=== PATIENT | male | born 1970 | race Caucasian/White ===

== ENCOUNTER 2019-01-11 04:33 | Emergency (ER) | payer BC ==
[~2019-01-11] VITALS: Ht 167.6 cm; Wt 90.7 kg
[~2019-01-11 04:33] MED LIST: AMLODIPINE BESYL5 MG PO; LOSARTAN-HCTZ1 EAC1 PO; PRAVASTATIN SOD10 MG PO
[2019-01-11] MEDS ORDERED: SODIUM CHLORIDE 0.9% 1000ML 1,000 ML IV STA (04:35)
[2019-01-11] MEDS ORDERED: KETOROLAC TROMETHAMINE 30 MG/ML VIAL IV STA (04:35)
[2019-01-11] MEDS ORDERED: ONDANSETRON HCL INJ 2MG/ML 2ML 2 MG/ML VIAL IV STA (04:35)
--- OUTSIDE RECORDS SUMMARY | 2019-01-11 04:36 | XMS REPORT | Summary of Care ---
Author Author JULY WEINER DDS Organization Unknown Address Unknown Phone Unavailable Care Team Providers Care Genomics Scientist Name Role Phone JULY WEINER DDS Unavailable Unavailable TONIA SANCHEZ MD, HARSH BUSTAMANTE Unavailable Unavailable July Weiner DDS Unavailable Unavailable Functional Status Name Dates Details Functional status health issues are not documented Status: Name Dates Details Cognitive status health issues are not documented Status: Problems Name Dates Details Active medical history not documented Status: Medications Name Dates Details Medications not documented Allergies and Adverse Reactions Name Dates Details No Known Drug Allergies (Allergy) Status: Active Procedures Procedure Dates Details Procedures not documented Immunization Name Dates Details Immunizations not documented Social History Name Dates Details Unknown if ever smoked Vital Signs Date Test Result Details [id number] BP Systolic 116 mm[Hg] Status: BP Diastolic 68 mm[Hg] Status: Height 66 in Status: Weight 200 lb Status: Body Mass Index Calculated 32.28 kg/m2 Status: Body Surface Area Calculated 2 m2 Status: Heart Rate 88 /min Status: Results Date Description Value Details Results not documented Plan of Care Name Dates Details Planned Observations Planned Goals not documented Interventions Provided Discussion/Summary* Impression: right mandibular bony cystic lesion associated to impacted teeth #31, 32 Currently, this is mild. * Return Visit Schedule for Outpatient Surgery Instructions Name Dates Details Instructions not documented Encounters Appointment; ANTONIO RANDALL DDS|[place] Encounter Diagnosis: Problem not documented On: 04-Oct-2018 11:15 Appointment; JULY WEINER DDS Encounter Diagnosis: Problem not documented On: 25-Nov-2018 15:00"
--- OUTSIDE RECORDS SUMMARY | 2019-01-11 04:36 | XMS REPORT | Summary of Care ---
Author Author [facility] Organization [facility] Address Unknown Phone Unavailable Encounter JACIEL Harris(GLADYS) [id number] Date(s): 12/28/18 - 12/28/18 [facility] [address] [place] [address] [phone] Discharge Disposition: Home or Self Care Attending Physician: Wallace Tran DDS, MD Referring Physician: Wallace Tran DDS, MD Vital Signs 1 2 3 Most recent to oldest [Reference Range]: 170.18 cm (12/28/18 6:28 AM) 167.64 cm (12/19/18 3:39 PM) Height 139/73 mmHg (12/28/18 12:46 PM) 136/78 mmHg (12/28/18 12:00 PM) 165/83 mmHg *HI* (12/28/18 11:45 AM) Blood Pressure [90-140/60-90 mmHg] 16 BRMIN (12/28/18 12:46 PM) 15 BRMIN (12/28/18 12:00 PM) 12 BRMIN *LOW* (12/28/18 11:45 AM) Respiratory Rate [14-20 BRMIN] 85 bpm (12/28/18 6:28 AM) 84 bpm (12/19/18 3:40 PM) Peripheral Pulse Rate [60-100 bpm] 90.909 kg (12/28/18 6:28 AM) 92 kg (12/19/18 3:39 PM) Weight 31.39 m2 (12/28/18 6:28 AM) 32.74 m2 (12/19/18 3:39 PM) Body Mass Index Problem List No data available for this section Allergies, Adverse Reactions, Alerts No Known Medication Allergies Medications acetaminophen 325 mg oral tablet 650 mg=2 tab, PO, Q6H, PRN for pain, X 2 day, # 30 tab, 0 Refill(s) Start Date: 12/28/18 Stop Date: 12/30/18 Status: Completed ANES flumazenil 0.2 mg, 2 mL, Route: IVP, Drug form: INJ, PRN, Dosing Weight 90.909, kg, PRN Jose Angel zodiazepine Reversal, Initial dose, Start date: 12/28/18 8:41:00 CDT, Duration: 30 day, Stop date: 01/27/19 8:40:00 CDT, 0 Notes: (Same as: Romazicon) Start Date: 12/28/18 Stop Date: 12/29/18 Status: Discontinued ANES hydrALAZINE 10 mg, 0.5 mL, Route: IVP, Drug form: INJ, Q20Min, Dosing Weight 90.909, kg, PRN Elevated BP, Start date: 12/28/18 8:41:00 CDT, Duration: 2 doses or times, Stop date: 12/29/18 0:00:00 CDT, 0 Notes: (Same as: Apresoline)Push over 5 minutes Start Date: 12/28/18 Stop Date: 12/29/18 Status: Completed ANES HYDROmorphone 0.5 mg, 0.25 mL, Route: IVP, Drug form: INJ, Q5Min, Dosing Weight 90.909, kg, ME N Pain Score 7-10, Start date: 12/28/18 8:41:00 CDT, Duration: 4 doses or times, Stop date: 12/29/18 0:00:00 CDT, 0 Notes: Same as Dilaudid Start Date: 12/28/18 Stop Date: 12/29/18 Status: Completed ANES naloxone 0.4 mg, 1 mL, Route: IVP, Drug form: INJ, Q2MIN, Dosing Weight 90.909, kg, PRN N arcotic Reversal, Start date: 12/28/18 8:41:00 CDT, Duration: 8 doses or times, Stop date: 12/29/18 0:00:00 CDT, 0 Notes: Same as Narcan Start Date: 12/28/18 Stop Date: 12/29/18 Status: Completed ANES ondansetron 4 mg, 2 mL, Route: IVP, Drug form: INJ, ONCE, Dosing Weight 90.909, kg, PRN Naus ea & Vomiting, Start date: 12/28/18 8:41:00 CDT, 0 Notes: (Same as: [place]) MEDICATION WASTE Product Size: 4 mgProduct Was sergey: ___ mg Start Date: 12/28/18 Stop Date: 12/29/18 Status: Discontinued ANES oxyCODONE 5 mg immediate release tablet 5 mg, 1 tab, Route: PO, Drug form: TAB, Q4H, Dosing Weight 90.909, kg, PRN Pain Score 4-6, Start date: 12/28/18 8:41:00 CDT, Duration: 30 day, Stop date: 8:40:00 CDT, 0 Notes: (Same as: Roxicodone) Start Date: 12/28/18 Stop Date: 12/29/18 Status: Discontinued ANES oxyCODONE 5 mg immediate release tablet 10 mg, 2 tab, Route: PO, Drug form: TAB, Q4H, Dosing Weight 90.909, kg, PRN Pain Score 7-10, Start date: 12/28/18 8:41:00 CDT, Duration: 30 day, Stop date: 01/15 08/02 8:40:00 CDT, 0 Notes: (Same as: Roxicodone) Start Date: 12/28/18 Stop Date: 12/29/18 Status: Discontinued Augmentin 875 mg oral tablet 875 mg=1 tab, PO, Q12H, X 7 day, # 14 tab, 0 Refill(s) Start Date: 12/28/18 Stop Date: 01/04/19 Status: Ordered ceFAZolin 2 gm, 20 mL, Route: IVP, Drug form: SOLN, PRE OP, Start date: 12/27/18 23:00:00 CDT, Duration: 1 day, Stop date: 12/28/18 22:59:00 CDT, ABX Indication: Surgical Prophylaxis, 0 Notes: (Same as Ancef) Start Date: 12/27/18 Stop Date: 12/28/18 Status: Completed ceFAZolin (ANES) Route: IV, Drug form: INJ, ONCE, Stop date: 12/28/18 8:43:00 CDT Start Date: 12/28/18 Stop Date: 12/28/18 Status: Completed dexamethasone (ANES) Route: IV, Drug form: INJ, ONCE, Stop date: 12/28/18 8:48:00 CDT Start Date: 12/28/18 Stop Date: 12/28/18 Status: Completed ePHEDrine (ANES) Route: IV, Drug form: INJ, ONCE, Stop date: 12/28/18 8:43:00 CDT Start Date: 12/28/18 Stop Date: 12/28/18 Status: Completed fenofibrate 134 mg, PO, Daily Start Date: 12/20/18 Status: Ordered fentaNYL (ANES) Route: IV, Drug form: INJ, ONCE, Stop date: 12/28/18 8:43:00 CDT Start Date: 12/28/18 Stop Date: 12/28/18 Status: Completed gabapentin 300 mg oral capsule 300 mg, 1 cap, Route: PO, Drug form: CAP, ONCE, Dosing Weight 90.909, kg, Start date: 12/28/18 7:06:00 CDT, Stop date: 12/28/18 7:06:00 CDT, 0 Notes: (Same as: Neurontin) Start Date: 12/28/18 Stop Date: 12/28/18 Status: Completed glycopyrrolate (ANES) Route: IV, Drug form: INJ, ONCE, Stop date: 12/28/18 10:13:00 CDT Start Date: 12/28/18 Stop Date: 12/28/18 Status: Completed ibuprofen 600 mg oral tablet 600 mg=1 tab, PO, Q6H, PRN Pain or Fever, Take with food, X 10 day, # 20 tab, 0 Refill(s) Start Date: 12/28/18 Stop Date: 01/07/19 Status: Ordered Lactated Ringers Injection IV (ANES) 1000 mL Route: IV, Total Volume: 1,000, Start date: 12/28/18 7:30:00 CDT, Stop date: 8:30:00 CDT Start Date: 12/28/18 Stop Date: 12/28/18 Status: Completed lidocaine (ANES) Route: IV, Drug form: INJ, ONCE, Stop date: 12/28/18 8:43:00 CDT Start Date: 12/28/18 Stop Date: 12/28/18 Status: Completed midazolam (ANES) Route: IV, Drug form: SOLN, ONCE, Stop date: 12/28/18 8:43:00 CDT Start Date: 12/28/18 Stop Date: 12/28/18 Status: Completed multivitamin 1 tab, PO, Daily Start Date: 12/20/18 Status: Ordered neostigmine (ANES) Route: IV, Drug form: INJ, ONCE, Stop date: 12/28/18 10:13:00 CDT Start Date: 12/28/18 Stop Date: 12/28/18 Status: Completed olmesartan 40 mg, PO, Daily Start Date: 12/20/18 Status: Ordered ondansetron (ANES) Route: IV, Drug form: INJ, ONCE, Stop date: 12/28/18 8:48:00 CDT Start Date: 12/28/18 Stop Date: 12/28/18 Status: Completed Peridex 0.12% topical liquid 0.018 gm=15 mL, PO, BID, swish and spit; do not swallow, # 480 mL, 0 Refill(s) Start Date: 12/28/18 Status: Ordered propofol (ANES) Route: IV, Drug form: INJ, ONCE, Stop date: 12/28/18 8:43:00 CDT Start Date: 12/28/18 Stop Date: 12/28/18 Status: Completed rocuronium (ANES) Route: IV, Drug form: INJ, ONCE, Stop date: 12/28/18 8:43:00 CDT Start Date: 12/28/18 Stop Date: 12/28/18 Status: Completed rosuvastatin 20 mg, PO, Daily Start Date: 12/20/18 Status: Ordered tramadol 50 mg oral tablet 50 mg, 1 tab, Route: PO, Drug form: TAB, PRE OP, Dosing Weight 90.909, kg, Start date: 12/28/18 8:00:00 CDT, Duration: 30 day, Stop date: 01/27/19 7:59:00 CDT, 0 Notes: Not to exceed 400mg/day. (Same As: Ultram) Start Date: 12/28/18 Stop Date: 12/28/18 Status: Completed tramadol 50 mg oral tablet 50 mg=1 tab, PO, Q6H, PRN Pain, X 10 day, # 20 tab, 0 Refill(s) Start Date: 12/28/18 Stop Date: 01/07/19 Status: Ordered Tylenol 1,000 mg, 2 tab, Route: PO, Drug form: TAB, PRE OP, Dosing Weight 90.909, kg, St art date: 12/28/18 8:00:00 CDT, 0 Notes: Max acetaminophen 4000 mg/day (4 gm/day). (Same as: Tylenol Extra Streng th) Start Date: 12/28/18 Stop Date: 12/28/18 Status: Completed Results Most recent to 1 oldest [Reference Range]: Neutrophils # 6.7 K/CMM [1.5-8.1 K/CMM] (12/19/18 3:41 PM) Lymphocytes # 2.6 K/CMM [1.0-5.5 K/CMM] (12/19/18 3:41 PM) Monocytes # [0.0-0.8 1.3 K/CMM K/CMM] *HI* (12/19/18 3:41 PM) Eosinophils # 0.5 K/CMM [0.0-0.5 K/CMM] (12/19/18 3:41 PM) Basophils # [0.0-0.2 0.2 K/CMM K/CMM] (12/19/18 3:41 PM) eGFR 68 mL/min/1.73m2 1 *NA* (12/19/18 3:41 PM) AGAP [10.0-20.0 11.7 mEq/L mEq/L] (12/19/18 3:41 PM) Basophils [0.0-1.0 1.4 % %] *HI* (12/19/18 3:41 PM) BUN [7-22 mg/dL] 34 mg/dL *HI* (12/19/18 3:41 PM) Calcium Lvl 9.8 mg/dL [8.5-10.5 mg/dL] (12/19/18 3:41 PM) Chloride Lvl [95-109 107 mEq/L mEq/L] (12/19/18 3:41 PM) CO2 [24-32 mEq/L] 28 mEq/L (12/19/18 3:41 PM) Creatinine Lvl 1.25 mg/dL [0.50-1.40 mg/dL] (12/19/18 3:41 PM) Eosinophils [0.0-4.0 4.5 % %] *HI* (12/19/18 3:41 PM) Glucose Lvl [70-99 94 mg/dL mg/dL] (12/19/18 3:41 PM) Hct [42.0-54.0 %] 38.9 % *LOW* (12/19/18 3:41 PM) Hgb [14.0-18.0 g/dL] 13.3 g/dL *LOW* (12/19/18 3:41 PM) Potassium Lvl 4.7 mEq/L [3.5-5.1 mEq/L] (12/19/18 3:41 PM) Lymphocytes 23.2 % [20.0-40.0 %] (12/19/18 3:41 PM) MCH [27.0-31.0 pg] 32.5 pg *HI* (12/19/18 3:41 PM) MCHC [32.0-36.0 34.1 g/dL g/dL] (12/19/18 3:41 PM) MCV [80.0-94.0 fL] 95.3 fL *HI* (12/19/18 3:41 PM) Monocytes [2.0-12.0 11.5 % %] (12/19/18 3:41 PM) MPV [7.4-10.4 fL] 8.3 fL (12/19/18 3:41 PM) Sodium Lvl [135-145 142 mEq/L mEq/L] (12/19/18 3:41 PM) Platelet [133-450 389 K/CMM K/CMM] (12/19/18 3:41 PM) Segs [45.0-75.0 %] 59.4 % (12/19/18 3:41 PM) RBC [4.70-6.10 4.08 M/CMM M/CMM] *LOW* (12/19/18 3:41 PM) RDW [11.5-14.5 %] 13.9 % (12/19/18 3:41 PM) WBC [3.7-10.4 K/CMM] 11.3 K/CMM *HI* (12/19/18 3:41 PM) 1Result Comment: The eGFR is calculated using the CKD-EPI formula. In most young, healthy individuals the eGFR will be >90 mL/min/1.73m2. The eGFR declines with age. An eGFR of 60-89 may be normal in some populations, particularly the elderly, for whom the CKD-EPI formula has not been extensively validated. Use of the eGFR is not recommended in the following populations: Individuals with unstable creatinine concentrations, including patients and those with serious co-morbid conditions. Patients with extremes in muscle mass or diet. The data above are obtained from the National Kidney Disease Education Program ( NKDEP) which additionally recommends that when the eGFR is used in patients with extremes of body mass index for purposes of drug dosing, the eGFR should be mul tiplied by the estimated BMI. Immunizations No data available for this section Procedures Procedure Date Related Diagnosis Body Site Status Operation1 Completed Operation2 Completed Splenectomy Completed 1wisdom teeth extraction 2sleeve placed on Aorta Social History Social History Type Response Alcohol Current, Frequency: 3-5 times per week. Smoking Status Current every day smoker; Type: Cigarettes; Previous treatment: None; Ready to change: No; Concerns about tobacco use in household: No; Exposure to Tobacco Smoke Self; Cigarette Smoking Last 365 Days Yes; Reg Smoking Cessation Counseling No1 entered on: 12/28/18 1Smokes "about a pack a day" Assessment and Plan Extracted from: Title: Operative Note Author: Zain Conroy Date: 12/28/18 [facility] [facility] Date and time: 12/28/2018 Preoperative diagnosis: Right mandibular cyst, impacted teeth #31, 32 Postoperative diagnosis: Right mandibular cyst, impacted teeth #31, 32 Title of procedure: 1. Enucleation and curettage of right mandibular cyst 2. Extraction of teeth #31,32 3. Application of right mandibular bone plate Attending faculty present for procedure: Dr. Wallace Cano DDS, MD Resident surgeon: Dr. Zain Conroy DMD, MD Dr. Jasper Garvin DMD Consent discussed and signed yes Referral reviewed (if applicable): yes Time out completed and site or tooth verified: yes Anesthesia: General anesthesia EBL: 50 ml Blood products used: none Implants used: KLS custom plate, 4 x screws. Complications: none Findings: There was an impacted tooth #32 with an associated cyst of the right mandible. Specimen: None Indications: Mr. Briones is a 48-year-old male with right mandibular cysts associated with impacted teeth #31, 32. The patient has pain and purulent discharge associated with the cyst and impacted teeth. Condition at the end of procedures: good Disposition: PACU Details of Procedures: The patient was met in the pre-operative holding area were consent was confirmed and transferred to the operating room. Patient was intubated and the tube secured by the OMFS team. The patient was prepped and draped in the usual fashion and a throat pack placed. Attention was directed towards the right mandible, a bovie was used to make an incision along the external oblique to tooth #31 and a vertical release on the mesial of tooth #31 was made into the buccal vestibule and the incision carried across the mucosa to approximately the first premolar. A full-thickness mucoperiosteal flap was raised to the buccal exposing the inferior border of the mandible and the most posterior portion of the ramus. The mental nerve was identified in the anterior aspect of the incision and protected. At this point the custom left mandibular bone plate was applied to the mandible and it was shown to adapt very well to the mandible. A trocar incision at the right angle was made with a 15 blade approximately 1 cm in length and the trocar was passed through the cheek to the mandible. The 2 screws on the proximal end of the bone plate were drilled under copious irrigation through the trocar and locking screws were used to secure the plate. A trocar incision at the right mandible was made with a 15 blade approximately 1 cm in length and the trocar was passed through the cheek to the mandible. The 2 screws on the distal end of the bone plate were drilled under copious irrigation through the trocar and locking screws were used to secure the plate. Next a window in the buccal cortex of the right mandible was made using a 702 bur under copious amount of irrigation to expose the impacted teeth #31, 32 and the associated cyst. A 702 bur under the ear copious irrigation was used to section tooth #31 into multiple fragments and extracted in total. The cyst lining was remove from the bone associated with the crown of tooth #32. A 703 bur used to trough around tooth #32 and section the tooth and all fragments were removed. The bone was smoothed with bone file and wound was irrigated with copious saline, Avitene was placed in the defected and closure was completed with 3-0 chromic suture. The oral cavity was irrigated, throat pack removed, orogastric tube passed and patient turned over to anesthesia for extubation. Dr. Tran was present during the entire case. Zain Conroy DMD, MD OMFS Resident PGY-6 Addendum I have seen and examined the patient with Dr. Conroy by Marc, I have reviewed the note content and agree with the plan and assessment. Wallace Richey was present for the procedure. Hay Tran DDS, MD on DDMisael COOLEY FACS 12/29/2018 Professor 11:43 plant scientist
--- OUTSIDE RECORDS SUMMARY | 2019-01-11 04:36 | XMS REPORT | Continuity of Care Document ---
Author Author [facility] Address Unknown Phone Unavailable Care Team Providers Care Color Consultant Name Role Phone Cubeacon Information [email or web address] Unavailable Unavailable Problems Problem Status Onset Date Classification Date Reported Comments Source MANDIBLE CYST Active 12/05/2018 [facility] Medications Medication Details Route Status Patient Instructions Ordering Provider Order Date Source Amoxicillin 875 MG / Clavulanate 125 MG Oral Tablet [Augmentin 875-mg] 875 mg=1 tab, PO, Q12H, X 7 day, # 14 tab, 0 Refill(s) Active 12/28/2018 [facility] chlorhexidine gluconate 1.2 MG/ML Mouthwash [Peridex] 0.018 gm=15 mL, PO, BID, swish and spit; do not swallow, # 480 mL, 0 Refill(s) Active 12/28/2018 [facility] ibuprofen 600 mg oral tablet 600 mg=1 tab, PO, Q6H, PRN Pain or Fever, Take with food, X 10 day, # 20 tab, 0 Refill(s) Active 12/28/2018 [facility] acetaminophen 325 mg oral tablet 650 mg=2 tab, PO, Q6H, PRN for pain, X 2 day, # 30 tab, 0 Refill(s) No Longer Active 12/28/2018 [facility] tramadol hydrochloride 50 MG Oral Tablet 50 mg=1 tab, PO, Q6H, PRN Pain, X 10 day, # 20 tab, 0 Refill(s) Active 12/28/2018 [facility] glycopyrrolate (ANES) Route: IV, Drug form: INJ, ONCE, Stop date: 12/28/18 10:13:00 CDT Inactive 12/28/2018 [facility] neostigmine (ANES) Route: IV, Drug form: INJ, ONCE, Stop date: 12/28/18 10:13:00 CDT Inactive 12/28/2018 [facility] ondansetron (ANES) Route: IV, Drug form: INJ, ONCE, Stop date: 12/28/18 8:48:00 CDT Inactive 12/28/2018 [facility] dexamethasone (ANES) Route: IV, Drug form: INJ, ONCE, Stop date: 12/28/18 8:48:00 CDT Inactive 12/28/2018 [facility] midazolam (ANES) Route: IV, Drug form: SOLN, ONCE, Stop date: 12/28/18 8:43:00 CDT Inactive 12/28/2018 [facility] lidocaine (ANES) Route: IV, Drug form: INJ, ONCE, Stop date: 12/28/18 8:43:00 CDT Inactive 12/28/2018 [facility] propofol (ANES) Route: IV, Drug form: INJ, ONCE, Stop date: 12/28/18 8:43:00 CDT Inactive 12/28/2018 [facility] rocuronium (ANES) Route: IV, Drug form: INJ, ONCE, Stop date: 12/28/18 8:43:00 CDT Inactive 12/28/2018 [facility] fentaNYL (ANES) Route: IV, Drug form: INJ, ONCE, Stop date: 12/28/18 8:43:00 CDT Inactive 12/28/2018 [facility] ceFAZolin (ANES) Route: IV, Drug form: INJ, ONCE, Stop date: 12/28/18 8:43:00 CDT Inactive 12/28/2018 [facility] ePHEDrine (ANES) Route: IV, Drug form: INJ, ONCE, Stop date: 12/28/18 8:43:00 CDT Inactive 12/28/2018 [facility] Hydralazine 10 mg, 0.5 mL, Route: IVP, Drug form: INJ, Q20Min, Dosing Weight 90.909, kg, PRN Elevated BP, Start date: 12/28/18 8:41:00 CDT, Duration: 2 doses or times, Stop date: 12/29/18 0:00:00 CDT, 0Notes: (Same as: Apresoline) Push over 5 minutes No Longer Active 12/28/2018 [facility] Oxycodone Hydrochloride 5 MG Oral Tablet 5 mg, 1 tab, Route: PO, Drug form: TAB, Q4H, Dosing Weight 90.909, kg, PRN Pain Score 4-6, Start date: 12/28/18 8:41:00 CDT, Duration: 30 day, Stop date: 01/27/19 8:40:00 CDT, 0Notes: (Same as: Roxicodone) No Longer Active 12/28/2018 [facility] Hydromorphone 0.5 mg, 0.25 mL, Route: IVP, Drug form: INJ, Q5Min, Dosing Weight 90.909, kg, PRN Pain Score 7-10, Start date: 12/28/18 8:41:00 CDT, Duration: 4 doses or times, Stop date: 12/29/18 0:00:00 CDT, 0Note s: Same as Dilaudid No Longer Active 12/28/2018 [facility] Flumazenil 0.2 mg, 2 mL, Route: IVP, Drug form: INJ, PRN, Dosing Weight 90.909, kg, PRN Benzodiazepine Reversal, Initial dose, Start date: 12/28/18 8:41:00 CDT, Duration: 30 day, Stop date: 01/27/19 8:40:00 CDT, 0Notes: (Same as: Romazicon) No Longer Active 12/28/2018 [facility] Naloxone 0.4 mg, 1 mL, Route: IVP, Drug form: INJ, Q2MIN, Dosing Weight 90.909, kg, PRN Narcotic Reversal, Start date: 12/28/18 8:41:00 CDT, Duration: 8 doses or times, Stop date: 12/29/18 0:00:00 CDT, 0Notes: Same as Narcan No Longer Active 12/28/2018 [facility] Ondansetron 4 mg, 2 mL, Route: IVP, Drug form: INJ, ONCE, Dosing Weight 90.909, kg, PRN Nausea & Vomiting, Start date: 12/28/18 8:41:00 CDT, 0Notes: (Same as: Zofran) MEDICATION WASTE Product Size: 4 mg Product Wasted: ___ mg No Longer Active 12/28/2018 [facility] tramadol hydrochloride 50 MG Oral Tablet 50 mg, 1 tab, Route: PO, Drug form: TAB, PRE OP, Dosing Weight 90.909, kg, Start date: 12/28/18 8:00:00 CDT, Duration: 30 day, Stop date: 01/27/19 7:59:00 CDT, 0Notes: Not to exceed 400mg/day. (Same As: Ultram) Inactive 12/28/2018 [facility] Tylenol 1,000 mg, 2 tab, Route: PO, Drug form: TAB, PRE OP, Dosing Weight 90.909, kg, Start date: 12/28/18 8:00:00 CDT, 0Notes: Max acetaminophen 4000 mg/day (4 gm/day). (Same as: Tylenol Extra Strength) Inactive 12/28/2018 [facility] Lactated Ringers Injection IV (ANES) 1000 mL Route: IV, Total Volume: 1,000, Start date: 12/28/18 7:30:00 CDT, Stop date: 12/28/18 8:30:00 CDT Inactive 12/28/2018 [facility] gabapentin 300 MG Oral Capsule 300 mg, 1 cap, Route: PO, Drug form: CAP, ONCE, Dosing Weight 90.909, kg, Start date: 12/28/18 7:06:00 CDT, Stop date: 12/28/18 7:06:00 CDT, 0Notes: (Same as: Neurontin) Inactive 12/28/2018 [facility] ceFAZolin 2 gm, 20 mL, Route: IVP, Drug form: SOLN, PRE OP, Start date: 12/27/18 23:00:00 CDT, Duration: 1 day, Stop date: 12/28/18 22:59:00 CDT, ABX Indication: Surgical Prophylaxis, 0Notes: (Same as Ancef) No Longer Active 12/28/2018 [facility] olmesartan 40 mg, PO, Daily Active 12/20/2018 [facility] rosuvastatin 20 mg, PO, Daily Active 12/20/2018 [facility] Fenofibrate 134 mg, PO, Daily Active 12/20/2018 [facility] multivitamin 1 tab, PO, Daily Active 12/20/2018 [facility] Allergies, Adverse Reactions, Alerts Substance Category Reaction Severity Reaction type Status Date Reported Comments Source No Known Medication Allergies Assertion Drug allergy [facility] Immunizations No Data Provided for This Section Results Order Name Results Value Reference Range Date Interpretation Comments Source CHEM PANEL Glucose Lvl 94 70 - 99 12/19/2018 [facility] CHEM PANEL BUN 34 7 - 22 12/19/2018 [facility] CHEM PANEL Creatinine Lvl 1.25 0.50 - 1.40 12/19/2018 [facility] CHEM PANEL Sodium Lvl 142 135 - 145 12/19/2018 [facility] CHEM PANEL Potassium Lvl 4.7 3.5 - 5.1 12/19/2018 [facility] CHEM PANEL Chloride Lvl 107 95 - 109 12/19/2018 [facility] CHEM PANEL CO2 28 24 - 32 12/19/2018 [facility] CHEM PANEL Calcium Lvl 9.8 8.5 - 10.5 12/19/2018 [facility] CHEM PANEL eGFR 68 12/19/2018 Result Comment: The eGFR is calculated using the [...] from the National Kidney Disease Education Program (NKDEP) which additionally recommends that when the eGFR is used in patients with extremes of body mass index for purposes of drug dosing, the eGFR should be multiplied by the estimated BMI. [facility] CHEM PANEL AGAP 11.7 10.0 - 20.0 12/19/2018 [facility] HEMATOLOGY WBC 11.3 3.7 - 10.4 12/19/2018 [facility] HEMATOLOGY RBC 4.08 4.70 - 6.10 12/19/2018 [facility] HEMATOLOGY Hgb 13.3 14.0 - 18.0 12/19/2018 [facility] HEMATOLOGY Hct 38.9 42.0 - 54.0 12/19/2018 [facility] HEMATOLOGY MCV 95.3 80.0 - 94.0 12/19/2018 [facility] HEMATOLOGY MCH 32.5 27.0 - 31.0 12/19/2018 [facility] HEMATOLOGY MCHC 34.1 32.0 - 36.0 12/19/2018 [facility] HEMATOLOGY RDW 13.9 11.5 - 14.5 12/19/2018 [facility] HEMATOLOGY Platelet 389 133 - 450 12/19/2018 [facility] HEMATOLOGY MPV 8.3 7.4 - 10.4 12/19/2018 [facility] HEMATOLOGY Segs 59.4 45.0 - 75.0 12/19/2018 [facility] HEMATOLOGY Lymphocytes 23.2 20.0 - 40.0 12/19/2018 [facility] HEMATOLOGY Monocytes 11.5 2.0 - 12.0 12/19/2018 [facility] HEMATOLOGY Eosinophils 4.5 0.0 - 4.0 12/19/2018 [facility] HEMATOLOGY Basophils 1.4 0.0 - 1.0 12/19/2018 [facility] HEMATOLOGY Neutrophils # 6.7 1.5 - 8.1 12/19/2018 [facility] HEMATOLOGY Lymphocytes # 2.6 1.0 - 5.5 12/19/2018 [facility] HEMATOLOGY Monocytes # 1.3 0.0 - 0.8 12/19/2018 [facility] HEMATOLOGY Eosinophils # 0.5 0.0 - 0.5 12/19/2018 [facility] HEMATOLOGY Basophils # 0.2 0.0 - 0.2 12/19/2018 [facility] Pathology Reports No Data Provided for This Section Diagnostic Reports Report Value Date Source Teeth Complete Full Mouth DX EXAM: XR PANOREX DATE: 12/28/2018 7:40 CDT INDICATION: - Post-operative Panorex s/p ORIF R mandible COMPARISON: None available. TECHNIQUE: A single Panorex view of the jaw. DISCUSSION: Evaluation of midline structures is limited by tomographic artifact. The temporomandibular joints are well aligned. There is plate and screw fixation of right hemimandible from the level of mandibular angle to the minimally body. Ill-defined fracture/cystic lesion is seen along the right mandibular angle including the alveolar region. Ill-defined plate and screw projecting over the left mandible may be artifact. Impacted right and left maxillary molar teeth are noted. Multiple teeth are absent. No dental caries or periapical lucencies are identified. IMPRESSION: 1. Plate and screw fixation of the right hemimandible in satisfactory appearance. 2. Ill-defined plate and screw projecting over the left hemimandible may be artifact. Correlation with prior imaging is recommended. 12/28/2018 [facility] Consultation Notes No Data Provided for This Section Discharge Summaries No Data Provided for This Section History and Physicals No Data Provided for This Section Vital Signs Vital Sign Value Date Comments Source Respitory Rate 16 12/28/2018 [facility] Systolic (mm Hg) 139 12/28/2018 [facility] Diastolic (mm Hg) 73 12/28/2018 [facility] Respitory Rate 15 12/28/2018 [facility] Systolic (mm Hg) 136 12/28/2018 [facility] Diastolic (mm Hg) 78 12/28/2018 [facility] Respitory Rate 12 12/28/2018 [facility] Systolic (mm Hg) 165 12/28/2018 [facility] Diastolic (mm Hg) 83 12/28/2018 [facility] Height 170.18 cm 12/28/2018 [facility] Weight 90.909 12/28/2018 [facility] BMI Calculated 31.39 12/28/2018 [facility] Heart Rate 85 12/28/2018 [facility] Heart Rate 84 12/19/2018 [facility] Height 167.64 cm 12/19/2018 [facility] Weight 92 12/19/2018 [facility] BMI Calculated 32.74 12/19/2018 [facility] Encounters Location Location Details Encounter Type Encounter Number Reason For Visit Attending Provider ADM Date DC Date Status Source [facility] Day Surgery [id number] Wallacekhoa Tran 12/28/2018 12/29/2018 [facility] Procedures Procedure Code Date Perfomer Comments Source Operation<sup>1</sup> [id number] wisdom teeth extraction [facility] Operation<sup>2</sup> [id number] sleeve placed on Aorta [facility] Splenectomy [id number] [facility] Assessment and Plan Assessment and Plan Date Source Extracted from:Title: Operative Note Author: Zain Conroy DMD Date: 12/28/18 [facility] OPERATIVE NOTE Date and time: 12/28/2018 Preoperative [...] Conroy DMD, MD [facility] Resident PGY-6 Addendum by Wallace Tran DDS, MD on 12/29/2018 11:43 I have seen and examined the patient with Dr. Conroy I have reviewed the note content and agree with the plan and assessment. I was present for the procedure. Wallace Tran DDS, MD FACS Professor hand trucker 12/29/2018 [facility] Plan of Care No Data Provided for This Section Social History Social History Date Source Social History TypeResponse Alcohol Current, Frequency: 3-5 times per week. Smoking Status Current every day smoker; Type: Cigarettes; Previous treatment: None; Ready to change: No; Concerns about tobacco use in household: No; Exposure to Tobacco Smoke Self; Cigarette Smoking Last 365 Days Yes; Reg Smoking Cessation Counseling No1 entered on: 12/28/18 1Smokes "about a pack a day" 12/20/2018 [facility] Family History No Data Provided for This Section Advance Directives No Data Provided for This Section Functional Status No Data Provided for This Section
--- OUTSIDE RECORDS SUMMARY | 2019-01-11 04:36 | XMS REPORT ---
Author Author [facility] Address Unknown Phone Unavailable Care Team Providers Care Lottery Manager Name Role Phone Unavailable Unavailable Problems This patient has no known problems. Allergies, Adverse Reactions, Alerts This patient has no known allergies or adverse reactions. Medications This patient has no known medications. Encounters Start Date/Time End Date/Time Encounter Type Admission Type Attending Clinicians Care Facility Care Department Encounter ID 2018-12-28 05:54:00 2018-12-28 05:54:00 Outpatient [facility] [id number]
[2019-01-11 04:52] LABS: BASOPHILS # (AUTO) 0.1 (0.0-0.1); BASOPHILS % 0.5 % (0.0-1.0); EOSINOPHILS # (AUTO) 0.5 (0.0-0.4); EOSINOPHILS % 2.9 % (0.0-6.0); HEMATOCRIT 36.2 % (38.2-49.6); HEMOGLOBIN 11.8 g/dL (14.0-18.0); LYMPHOCYTES # (AUTO) 6.2 (1.0-3.2); LYMPHOCYTES % 38.4 % (18.0-39.1); MEAN CORPUSCULAR HEMOGLOBIN 32.1 pg (28-32); MEAN CORPUSCULAR HGB CONC 32.6 g/dL (31-35); MEAN CORPUSCULAR VOLUME 98.4 fL (81-99); MONOCYTES # (AUTO) 1.9 (0.2-0.8); MONOCYTES % 11.5 % (4.4-11.3); NEUTROPHILS # (AUTO) 7.4 (2.1-6.9); NEUTROPHILS % 46.1 % (38.7-80.0); PLATELET COUNT 425 x10e3/uL (140-360); RED BLOOD COUNT 3.68 x10e6/uL (4.3-5.7)
[2019-01-11 05:12] LABS: ALBUMIN 3.8 g/dL (3.5-5.0); ALBUMIN/GLOBULIN RATIO 1.2 (0.8-2.0); ANION GAP 15.5 mmol/L (8-16); CALCIUM 9.9 mg/dL (8.4-10.2); CREATININE, SERUM 1.4 mg/dL (0.72-1.25); POTASSIUM 3.5 mmol/L (3.5-5.1)
[2019-01-11] MEDS ORDERED: SODIUM CHLORIDE 0.9% 50ML 50 ML ONE (05:37)
[2019-01-11] MEDS ORDERED: IOPAMIDOL 370 MG/ML 200 ML INFUS..BTL INJ ONE (05:38)
--- NOTE | 2019-01-11 06:11 | Diagnostic Imaging Report ---
EXAMINATION: CT of the abdomen and pelvis with contrast. TECHNIQUE: Spiral CT images of the abdomen and pelvis were performed from the lung bases to the lesser trochanters after the intravenous administration of 100 cc Isovue-370. Coronal and sagittal reformatted images were obtained. COMPARISON: CT abdomen and pelvis without contrast 12/05/2015. CLINICAL HISTORY:Left lower quadrant pain DISCUSSION: ABDOMEN/PELVIS: LOWER THORAX:Subsegmental atelectasis or scar in the lung bases left greater than right. HEPATOBILIARY: No focal hepatic lesions. No intra-or extrahepatic biliary ductal dilation. The gallbladder is normal. 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 Appearance unchanged relative to 2016. PANCREAS: No focal masses or ductal dilatation. ADRENALS: No adrenal nodules. KIDNEYS/URETERS: Subcentimeter hypoattenuating lesions bilaterally too small to further characterize but likely to represent cysts. 2 mm calculus near the left ureterovesical junction results in trace pelviectasis without overt hydronephrosis. Perinephric and periureteral inflammation is noted. 1.5 cm intermediate attenuation exophytic lesion projecting from the left kidney (80 Hounsfield units), see series 2 image 39. This lesion was present on noncontrast CT 12/05/2015 though has increased in size. PELVIC ORGANS/BLADDER: The urinary bladder, prostate, and seminal vesicles are unremarkable. PERITONEUM/RETROPERITONEUM: No free air or fluid. LYMPH NODES: No intra-abdominal, retroperitoneal, pelvic or inguinal lymphadenopathy. VESSELS: Atherosclerotic calcification of the abdominal aorta without aneurysmal dilatation. Portal vein, splenic vein, and central superior mesenteric vein are patent. There are 2 right renal arteries and at least 3 left renal arteries. GI TRACT: The large bowel shows no evidence of distention or wall thickening. The descending and sigmoid colon are collapsed and poorly evaluated. The appendix is normal. No small bowel dilatation to suggest obstruction. BONES AND SOFT TISSUE: Bilateral fat-containing inguinal hernias. No osseous destructive lesions. Multilevel degenerative disc changes and facet arthropathy of the lumbar spine. Healed left rib fracture deformities unchanged. No additional focal soft tissue abnormalities. IMPRESSION: 2-3 mm distal left ureteral calculus results in perinephric and periureteral inflammation with trace pelviectasis. No overt hydronephrosis. Exophytic hyperdense lesion arising from the lower pole of the right kidney has increased in size relative to 12/05/2015, though likely represents a hyperdense cyst. A renal ultrasound or renal mass protocol CT or MRI of the abdomen is recommended on a nonemergent basis for confirmation. Atherosclerotic vascular disease. Signed by: Dr. Almas Perez M.D. on 01/11/2019 6:08 AM
[2019-01-11 06:33] LABS: BILIRUBIN,URINE NEGATIVE (NEGATIVE); CLARITY,URINE CLEAR (CLEAR); COLOR,URINE YELLOW (YELLOW); KETONES,URINE NEGATIVE (NEGATIVE); LEUKOCYTE ESTERASE ,URINE NEGATIVE (NEGATIVE); NITRITE,URINE NEGATIVE (NEGATIVE); PROTEIN,URINE DIPSTICK NEGATIVE (NEGATIVE); URINE UROBILINOGEN 0.2 mg/dL (0.2 - 1)
[2019-01-11 06:52] LABS: BACTERIA,URINE MANY /HPF; EPITHELIAL CELLS,URINE MODERATE /LPF; RBC,URINE 21-50 /HPF (0-5)
[2019-01-11 06:53] LABS: MUCUS,URINE FEW (RARE)
== END 2019-01-11 08:09 | disposition home or self-care (01) ==
LOC: ER 04:33
DX: N30.01 Acute cystitis with hematuria (principal); N28.9 Disorder of kidney and ureter, unspecified; D72.820 Lymphocytosis (symptomatic)
CPT/HCPCS: 36415; 74177; 80053; 81001; 83690; 85025; 99284; J1885; J2405; J7030; Q9967

== ENCOUNTER 2020-08-12 10:29 | Emergency (ER) | payer BC ==
[~2020-08-12] VITALS: Ht 167.6 cm; Wt 90.7 kg
[2020-08-12] MEDS ORDERED: SODIUM CHLORIDE 0.9% 1000ML 1,000 ML IV STA (10:42)
[2020-08-12 10:52] LABS: BASOPHILS # (AUTO) 0.1 (0.0-0.1); BASOPHILS % 0.7 % (0.0-1.0); EOSINOPHILS # (AUTO) 0.3 (0.0-0.4); EOSINOPHILS % 2.5 % (0.0-6.0); HEMATOCRIT 48.9 % (38.2-49.6); HEMOGLOBIN 15.9 g/dL (14.0-18.0); LYMPHOCYTES # (AUTO) 3.5 (1.0-3.2); LYMPHOCYTES % 28.6 % (18.0-39.1); MEAN CORPUSCULAR HEMOGLOBIN 30.8 pg (28-32); MEAN CORPUSCULAR HGB CONC 32.5 g/dL (31-35); MEAN CORPUSCULAR VOLUME 94.8 fL (81-99); MONOCYTES # (AUTO) 1.6 (0.2-0.8); MONOCYTES % 12.7 % (4.4-11.3); NEUTROPHILS # (AUTO) 6.8 (2.1-6.9); PLATELET COUNT 417 x10e3/uL (140-360); RED BLOOD COUNT 5.16 x10e6/uL (4.3-5.7)
[2020-08-12 10:54] LABS: CLARITY,URINE CLEAR (CLEAR); COLOR,URINE YELLOW (YELLOW); KETONES,URINE NEGATIVE (NEGATIVE); LEUKOCYTE ESTERASE ,URINE NEGATIVE (NEGATIVE); NITRITE,URINE NEGATIVE (NEGATIVE); PROTEIN,URINE DIPSTICK NEGATIVE (NEGATIVE); URINE UROBILINOGEN 0.2 mg/dL (0.2 - 1)
[2020-08-12 11:08] LABS: RBC,URINE 0-5 /HPF (0-5); WBC,URINE (MAN) 0-5 /HPF (0-5)
[2020-08-12 11:27] LABS: ALANINE AMINOTRANSFERASE 31 IU/L (0-55); ALBUMIN 4.1 g/dL (3.5-5.0); ALKALINE PHOSPHATASE 89 IU/L (40-150); ANION GAP 12.9 mmol/L (8-16); BLOOD UREA NITROGEN 19 mg/dL (7-26); BUN/CREATININE RATIO 20 (6-25); CALCIUM 9.2 mg/dL (8.4-10.2); CARBON DIOXIDE 26 mmol/L (22-29); CHLORIDE 106 mmol/L (98-107); CREATINE KINASE 205 IU/L (30-200); CREATININE, SERUM 0.94 mg/dL (0.72-1.25); EST GLOMERULAR FILTRATION RATE > 60 ML/MIN (60-); GLUCOSE 101 mg/dL (74-118); MAGNESIUM 1.9 MG/DL (1.3-2.1); POTASSIUM 3.9 mmol/L (3.5-5.1); SODIUM 141 mmol/L (136-145)
== END 2020-08-12 12:54 | disposition home or self-care (01) ==
LOC: ER 11:13
DX: N28.89 Other specified disorders of kidney and ureter (principal); M62.838 Other muscle spasm; M54.5 Low back pain; I10 Essential (primary) hypertension; E78.5 Hyperlipidemia, unspecified; Z87.442 Personal history of urinary calculi
CPT/HCPCS: 36415; 74176; 80053; 81001; 82550; 82553; 83735; 84484; 85025; 87086; 99283; J7030

== ENCOUNTER → 2020-09-03 | Day surgery (SDC) | payer BC ==
[2020-08-30 09:38] LABS: ANION GAP 12.2 mmol/L (8-16); BLOOD UREA NITROGEN 23 mg/dL (7-26); BUN/CREATININE RATIO 23 (6-25); CALCIUM 8.8 mg/dL (8.4-10.2); CARBON DIOXIDE 27 mmol/L (22-29); CHLORIDE 105 mmol/L (98-107); EST GLOMERULAR FILTRATION RATE > 60 ML/MIN (60-); GLUCOSE 99 mg/dL (74-118); POTASSIUM 4.2 mmol/L (3.5-5.1); SODIUM 140 mmol/L (136-145)
[~2020-09-03] MED LIST changes: +BUPIVACAINE HCL 0.5% INJ 30 ML VIAL INJ ONE; +CEFAZOLIN SOD 1 GM/NS 50ML 100 ML IV ONE; +CRESTOR10 MG PO; +DEXAMETHASONE SOD PHOS INJ 4 MG/ML VIAL ONE; +FENTANYL CITRATE/PF 100MCG/2 ML INJ ONE; +KETOROLAC TROMETHAMINE 30 MG/ML VIAL ONE; +NEOSTIGMINE 1 MG/ML 10ML VIAL ONE; +OLMESARTAN-HCT1 EAC1 PO; +OMEPRAZOLE40 MG PO; +ONDANSETRON HCL INJ 2MG/ML 2ML 2 MG/ML VIAL ONE; +POVIDONE IODINE 0.05% 0.05 % ML PO ONE; +PROPOFOL IV EMULSION 10 MG/ML 20 ML VIAL ONE; +SEVOFLURANE INHAL SOLN 250 ML PEN BTL ONE
[2020-09-03 10:50] VITALS: BP 124/77
== END | disposition home or self-care (01) ==
LOC: OR 06:00
PROVIDERS: ATTEND Podiatrist Foot & Ankle Surgery
DX: M20.22 Hallux rigidus, left foot (principal); M19.072 Primary osteoarthritis, left ankle and foot; R26.2 Difficulty in walking, not elsewhere classified; M25.775 Osteophyte, left foot; G47.33 Obstructive sleep apnea (adult) (pediatric); E78.00 Pure hypercholesterolemia, unspecified; R03.0 Elevated blood-pressure reading, without diagnosis of hypertension; F17.200 Nicotine dependence, unspecified, uncomplicated
CPT/HCPCS: 28750; 36415; 76000; 80048; 93005; C1713 ×7; J0690; J1100; J1885; J2405; J2704; J2710; J3010; U0002

== ENCOUNTER 2025-01-11 11:10 | Emergency (ER) | payer BC, OTHER ==
[~2025-01-11] VITALS: Ht 167.6 cm; Wt 90.7 kg
[~2025-01-11 11:10] MED LIST changes: -BUPIVACAINE HCL 0.5% INJ 30 ML VIAL INJ ONE; -CEFAZOLIN SOD 1 GM/NS 50ML 100 ML IV ONE; +CEFDINIR300 MG PO; -DEXAMETHASONE SOD PHOS INJ 4 MG/ML VIAL ONE; -FENTANYL CITRATE/PF 100MCG/2 ML INJ ONE; -KETOROLAC TROMETHAMINE 30 MG/ML VIAL ONE; -NEOSTIGMINE 1 MG/ML 10ML VIAL ONE; -ONDANSETRON HCL INJ 2MG/ML 2ML 2 MG/ML VIAL ONE; -POVIDONE IODINE 0.05% 0.05 % ML PO ONE; -PROPOFOL IV EMULSION 10 MG/ML 20 ML VIAL ONE; -SEVOFLURANE INHAL SOLN 250 ML PEN BTL ONE; +SYMBICORT 16010.2 GM INH
[2025-01-11 11:18] VITALS: PULSE 82; RESP 16; TEMP 97.9; O2SAT 97
[2025-01-11] MEDS ORDERED: MEDROL4 M2 PO (11:57)
[2025-01-11] MEDS: PREDNISONE 20 MG TAB PO ONE (12:27)
== END 2025-01-11 14:05 | disposition home or self-care (01) ==
LOC: ER 11:17
DX: M25.511 Pain in right shoulder (principal); X50.1XXA Overexertion from prolonged static or awkward postures, initial encounter; Y99.0 Civilian activity done for income or pay; I10 Essential (primary) hypertension; J44.9 Chronic obstructive pulmonary disease, unspecified; E78.5 Hyperlipidemia, unspecified; J45.909 Unspecified asthma, uncomplicated; Z87.442 Personal history of urinary calculi; F17.210 Nicotine dependence, cigarettes, uncomplicated
CPT/HCPCS: 73030; 99283; J7512